=== PATIENT | female | born 2005 | race African-American/Black ===

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

== ENCOUNTER 2025-01-13 05:03 | Emergency (ER) | payer SELFPAY ==
[2025-01-13] MEDS ORDERED: Acetaminophen 500 MG TAB ONE (05:36)
[2025-01-13] MEDS ORDERED: Ibuprofen 200 MG TAB ONE (05:36)
== END 2025-01-13 06:09 | disposition home or self-care (01) ==
LOC: ERS 05:03
DX: U07.1 COVID-19 (principal)
CPT/HCPCS: 87081; 87428; 87430; 99283

== ENCOUNTER 2025-02-05 23:18 | Emergency (ER) | payer SELFPAY ==
[~2025-02-05 23:18] MED LIST changes: +GASTROGRAFIN 30 ML BOT ONE; -ISOVUE-370 76%-LOCM 1 ML ONE; +Iopamidol 370 76% 100 ML VIAL ONE
[2025-02-06] MEDS ORDERED: Ondansetron PF 4 MG/2 ML Vial ONE (00:34)
[2025-02-06 00:54] LABS: #Basophils Less than 0.03 10x3/uL (0.0-0.2); #Eosinophils 0.11 10x3/uL (0.0-0.7); #Monocytes 0.32 10x3/uL (0.11-0.59); #Neutrophils 3.29 10x3/uL (1.40-6.50); %Basophils 0.4 % (0.0-1.0); %Eosinophils 2.0 % (0.0-10.0); %Lymphocytes 31.2 % (28.0-48.0); %Monocytes 5.9 % (0.0-4.0); %Neutrophils 60.3 % (31.0-61.0); Hematocrit 37.3 % (36.0-47.0); Hemoglobin 12.1 g/dL (12.0-16.0); Mean Corpuscular Hemoglobin 28.4 pg (25.0-35.0); Mean Corpuscular Volume 87.6 fL (78.0-98.0); Platelet Count 197 10x3/uL (130-400); Red Blood Cell (RBC) Count 4.26 mill/uL (4.00-5.20); White Blood Cell (WBC) Count 5.45 10x3/uL (4.8-10.8)
[2025-02-06 01:14] LABS: BHCG - Serum Negative (NEGATIVE); Pregs Control Background? CLEAR/WHITE (CLR/WHITE); Pregs Control Bar Appear? YES (CONTROL BAR)
[2025-02-06 01:16] LABS: Lipase 12 U/L (8-78)
[2025-02-06 01:18] LABS: ALT (SGPT) 27 U/L (Less than 34); AST (SGOT) 31 U/L (11-34); Acetaminophen Less than 10 mcg/mL (Less than 10); Albumin 3.6 g/dL (3.1-4.5); Alkaline Phosphatase 71 U/L (40-100); Anion Gap 15 mmol/L (10-20); BUN (Urea Nitrogen) 10 mg/dL (7.0-18.7); Bilirubin, Total 0.5 mg/dL (0.3-1.2); Calc. Creatinine Clearance 0 mL/min (70-130); Calcium 8.5 mg/dL (7.8-10.44); Carbon Dioxide 22 mmol/L (22-29); Chloride 106 mmol/L (98-107); Globulin 2.9 g/dL (2.4-3.5); Glucose 76 mg/dL (70-105); Potassium 3.9 mmol/L (3.5-5.1); Salicylate Less than 8.0 mg/dL (Less than 8.0); Sodium 139 mmol/L (136-145)
== END 2025-02-06 03:06 | disposition home or self-care (01) ==
LOC: ERS 23:18
DX: R10.30 Lower abdominal pain, unspecified (principal); K59.00 Constipation, unspecified; Z55.6 Problems related to health literacy
CPT/HCPCS: 74177; 80053; 80307; 83690; 84703; 85025

== ENCOUNTER 2025-02-22 07:56 | Emergency (ER) | payer SELFPAY ==
[2025-02-22] MEDS ORDERED: Metoclopramide HCl 10 MG (2 mL) VIAL ONE (08:21)
[2025-02-22] MEDS ORDERED: Acetaminophen 500 MG TAB ONE (08:21)
[2025-02-22] MEDS ORDERED: diphenhydrAMINE 50 MG/ML VIAL ONE (08:56)
[2025-02-22 08:58] LABS: Bacteria/HPF 1+ HPF (None Seen); CAUTI Indications for Culture Pelvic or flank pain; Glucose, Urine (Dipstick) Normal (Negative); Leukocyte 500 Leu/uL (Negative); Protein, Urine (Dipstick) 10 mg/dL (Neg-Trace); RBC/HPF 0-3 HPF (0-3); Specific Gravity, Urine 1.031 (1.002-1.036); WBC/HPF 0-3 HPF (0-3)
[2025-02-22 08:59] LABS: Pregnancy Test - Urine (BHCG) Negative (Negative); Pregu Control Background? CLEAR/WHITE (CLR/WHITE); Pregu Control Bar Appear? YES (CONTROL BAR); Urine Culture Reflex No No
[2025-02-22] MEDS ORDERED: Ketorolac Tromethamine 30 MG (1 mL) VIAL ONE (09:07)
[2025-02-22] MEDS ORDERED: Dexamethasone 4 MG TAB ONE (09:30)
== END 2025-02-22 09:34 | disposition home or self-care (01) ==
LOC: ERS 07:56
DX: R51.9 Headache, unspecified (principal); R29.700 NIHSS score 0
CPT/HCPCS: 81001; 81025; 96365; 96375; J1200; J1885; J2765; J8540

== ENCOUNTER 2025-02-27 18:36 | Emergency (ER) | payer SELFPAY ==
[2025-02-27 19:44] LABS: Bacteria/HPF None Seen HPF (None Seen); CAUTI Indications for Culture Dysuria,urgency,freq; Glucose, Urine (Dipstick) Normal (Negative); Leukocyte 500 Leu/uL (Negative); Protein, Urine (Dipstick) Negative (Neg-Trace); RBC/HPF 0-3 HPF (0-3); Specific Gravity, Urine 1.013 (1.002-1.036); WBC/HPF 0-3 HPF (0-3)
[2025-02-27 19:58] LABS: Pregnancy Test - Urine (BHCG) Negative (Negative); Pregu Control Background? CLEAR/WHITE (CLR/WHITE); Pregu Control Bar Appear? YES (CONTROL BAR); Urine Culture Reflex No No
[2025-02-27] MEDS ORDERED: Cephalexin 250 MG CAP ONE (20:22)
== END 2025-02-27 20:26 | disposition home or self-care (01) ==
LOC: ERS 18:36
DX: N39.0 Urinary tract infection, site not specified (principal)
CPT/HCPCS: 81001; 81025; 99283